=== PATIENT | female | born 1995 | race Two or more races ===

== ENCOUNTER 2020-02-23 21:22 | Emergency (ER) | payer OTHER ==
[2020-02-23 22:06] VITALS: BP 161/81; PULSE 63; TEMP 97.9; BMI 29.5
== END 2020-02-23 22:38 | disposition home or self-care (01) ==
LOC: JERFT 21:22 → JER 21:22 → JERFT 22:38
DX: B86 Scabies (principal)
CPT/HCPCS: 99283-25

== ENCOUNTER 2020-07-27 02:28 | Emergency (ER) | payer OTHER ==
[2020-07-27 03:00] VITALS: BP 142/86; PULSE 85; TEMP 97.9; BMI 30.4
[2020-07-27 03:21] LABS: EPI CELLS 1 /uL (0-25.1); HYALINE CASTS 0 /uL (0-3.1); URINE APPEARANCE CLOUDY; URINE BACTERIA 66 /uL (0-1359); URINE BILIRUBIN NEGATIVE (NEGATIVE); URINE COLOR YELLOW; URINE GLUCOSE (UA) NEGATIVE (NEGATIVE); URINE KETONE NEGATIVE (NEGATIVE); URINE LEUK ESTERASE 3+ (NEGATIVE); URINE NITRITE NEGATIVE (NEGATIVE); URINE PROTEIN NEGATIVE (NEGATIVE); URINE RBC 37 /uL (0-23.9); URINE WBC 1852 /uL (0-25.8)
[2020-07-27] MEDS ORDERED: DOXYCYCLINE HYCLATE 100 MG CAPSULE PO ONE ×2 (03:52→04:15)
== END 2020-07-27 04:58 | disposition home or self-care (01) ==
LOC: JER 02:28
DX: N34.1 Nonspecific urethritis (principal); Z20.3 Contact with and (suspected) exposure to rabies
CPT/HCPCS: 36415; 81003; 87086; 87491; 87591; 99284-25